=== PATIENT | female | born 1945 | race Caucasian/White ===

== ENCOUNTER 2018-06-28 10:14 | Emergency (ER) | payer OTHER ==
[~2018-06-28] VITALS: Ht 144.8 cm; Wt 49.9 kg
[~2018-06-28 10:14] MED LIST: ATACAND4 MG PO; LOTREL 5-10 MG1 CAP PO; NEURONTIN600 MG PO; PEPCID40 MG PO; PLAVIX75 MG PO; SYNTHROID175 MCG PO; TRICOR48 MG PO; ZYRTEC10 MG PO
[2018-06-28] MEDS ORDERED: NORFLEX100MG PO (13:11)
[2018-06-28] MEDS ORDERED: MEDROLPACK PO (13:11)
== END 2018-06-28 13:15 | disposition home or self-care (01) ==
LOC: ER 10:14
DX: M54.5 Low back pain (principal)

== ENCOUNTER 2018-08-21 13:36 | Emergency (ER) | payer OTHER ==
[~2018-08-21] VITALS: Ht 144.8 cm; Wt 49.9 kg
[~2018-08-21 13:36] MED LIST changes: +MEDROLPACK PO; +NORFLEX100MG PO
[2018-08-21] MEDS ORDERED: PERCOCET 5-3251 EACH (14:15)
== END 2018-08-21 20:13 | disposition home or self-care (01) ==
LOC: ER 13:36
DX: K58.8 Other irritable bowel syndrome (principal)

== ENCOUNTER 2018-11-02 14:12 | Outpatient (CLI) | payer OTHER ==
[~2018-11-02 14:12] MED LIST changes: +PERCOCET 5-3251 EACH
== END 2018-11-02 14:15 | disposition home or self-care (01) ==
LOC: RAD 14:12
DX: H43.12 Vitreous hemorrhage, left eye (principal); H43.812 Vitreous degeneration, left eye

== ENCOUNTER 2019-03-13 13:25 | Inpatient (IN) | payer OTHER ==
[~2019-03-13] VITALS: Ht 144.8 cm; Wt 44.5 kg
[2019-03-13] MEDS ORDERED: ASPIR 8181 MG (13:58)
[2019-03-13] MEDS ORDERED: METFORMIN HCL500 MG (13:59)
[2019-03-13] MEDS ORDERED: VASOTEC5 MG (13:59)
[2019-03-13] MEDS ORDERED: TOPROL XL25 MG (14:00)
[2019-03-13] MEDS ORDERED: ALDACTONE25 MG (14:00)
[2019-03-13] MEDS ORDERED: LIPITOR40 MG (14:00)
[2019-03-13] MEDS ORDERED: LASIX40 MG (14:01)
[2019-03-13] MEDS ORDERED: PERCOCET 10-321 EACH (14:01)
[2019-03-13] MEDS ORDERED: NEURONTIN800 MG (14:01)
--- NOTE | 2019-03-13 14:01 | NUR ---
PACIENTE CON REFERIDO MEDICO DEL
--- NOTE | 2019-03-13 16:41 | NUR ---
SE ORIENTA A PTE SOBRE PROCESO DE VENOPUNCION, JAVED DE MUESTRAS, ADMINISTRACION DE MED IV & PO. SE REALIZA EKG A PTE EL CUAL DR. RAMÍREZ Y SE INSERTA PINEDO BAJO MEDIDAS ASEPTICAS Y ESTERILES. SE MANTIENE PTE BAJO OBSERVACION.
== END 2019-03-18 10:58 | disposition home or self-care (01) | DRG 682 ==
LOC: ER 13:25 → MEDJ 19:26
PROVIDERS: ADMIT Internal Medicine Cardiovascular Disease
PROC: B246ZZZ Ultrasonography of Right and Left Heart (ICD-10-PCS; principal; 2019-03-13)
PROC: BT4JZZZ Ultrasonography of Kidneys and Bladder (ICD-10-PCS; 2019-03-13)
PROC: 3E0F7GC Introduction of Other Therapeutic Substance into Respiratory Tract, Via Natural or Artificial Opening (ICD-10-PCS; 2019-03-13)
PROC: 4A033R1 Measurement of Arterial Saturation, Peripheral, Percutaneous Approach (ICD-10-PCS; 2019-03-13)
DX: N17.8 Other acute kidney failure (principal); I50.43 Acute on chronic combined systolic (congestive) and diastolic (congestive) heart failure; E87.0 Hyperosmolality and hypernatremia; E87.3 Alkalosis; J44.1 Chronic obstructive pulmonary disease with (acute) exacerbation; I25.810 Atherosclerosis of coronary artery bypass graft(s) without angina pectoris; M50.03 Cervical disc disorder with myelopathy, cervicothoracic region; I13.0 Hypertensive heart and chronic kidney disease with heart failure and stage 1 through stage 4 chronic kidney disease, or unspecified chronic kidney disease; Q61.01 Congenital single renal cyst; E11.65 Type 2 diabetes mellitus with hyperglycemia; E86.0 Dehydration; Z79.4 Long term (current) use of insulin; E03.8 Other specified hypothyroidism; K58.8 Other irritable bowel syndrome; E87.5 Hyperkalemia; E78.49 Other hyperlipidemia; R39.2 Extrarenal uremia; I11.0 Hypertensive heart disease with heart failure; I08.1 Rheumatic disorders of both mitral and tricuspid valves; E11.22 Type 2 diabetes mellitus with diabetic chronic kidney disease; N18.2 Chronic kidney disease, stage 2 (mild)

== ENCOUNTER 2019-06-11 07:29 | Emergency (ER) | payer OTHER ==
[~2019-06-11] VITALS: Ht 147.3 cm; Wt 46.3 kg
[~2019-06-11 07:29] MED LIST changes: +ALDACTONE25 MG; +ASPIR 8181 MG; +LASIX40 MG; +LIPITOR40 MG; +METFORMIN HCL500 MG; +NEURONTIN800 MG; +PERCOCET 10-321 EACH; +TOPROL XL25 MG; +VASOTEC5 MG
[2019-06-11] MEDS ORDERED: TOPROL XL50 M1 (07:38)
== END 2019-06-11 12:24 | disposition home or self-care (01) ==
LOC: ER 07:29
DX: K29.60 Other gastritis without bleeding (principal); R06.02 Shortness of breath

== ENCOUNTER 2019-06-19 22:25 | Inpatient (IN) | payer OTHER ==
[~2019-06-19] VITALS: Ht 147.3 cm; Wt 44.5 kg
[~2019-06-19 22:25] MED LIST changes: +TOPROL XL50 M1
== END 2019-06-24 11:22 | disposition home or self-care (01) | DRG 292 ==
LOC: ER 22:25 → ICU-2 06-20 06:33 → SEC-K 06-22 06:44 → MEDJ 06-22 06:45
PROVIDERS: ADMIT Internal Medicine Cardiovascular Disease
PROC: B246ZZZ Ultrasonography of Right and Left Heart (ICD-10-PCS; principal; 2019-06-20)
PROC: 4A12X4Z Monitoring of Cardiac Electrical Activity, External Approach (ICD-10-PCS; 2019-06-22)
DX: I11.0 Hypertensive heart disease with heart failure (principal); J91.8 Pleural effusion in other conditions classified elsewhere; I50.23 Acute on chronic systolic (congestive) heart failure; I42.0 Dilated cardiomyopathy; I07.1 Rheumatic tricuspid insufficiency; Z95.810 Presence of automatic (implantable) cardiac defibrillator

== ENCOUNTER 2019-09-14 11:01 | Outpatient (CLI) | payer OTHER | END 2019-09-14 12:20 | disposition home or self-care (01) | LOC: NUCLEAR 11:01 | DX: I73.9 Peripheral vascular disease, unspecified (principal) ==

== ENCOUNTER 2020-01-28 02:13 | Inpatient (IN) | payer OTHER ==
[~2020-01-28] VITALS: Ht 144.8 cm; Wt 54.4 kg
[~2020-01-28 02:13] MED LIST changes: +ADULT LOW DOSE81 M1 PO; +CARDIZEM30 MG PO; +LIPITOR40 M1 PO; +NEURONTIN800 MG PO; +PLAVIX75 MG; +SYNTHROID75 MCG PO; +TOPROL XL25 M1 PO; +VASOTEC10 MG NGT; +ZENZEDI2.5 MG PO
== END 2020-02-02 10:41 | disposition home or self-care (01) | DRG 291 ==
LOC: ER 02:13 → ICU-2 10:49 → ICU 10:49 → MEDI 01-31 19:26
PROVIDERS: ADMIT Internal Medicine Cardiovascular Disease; ATTEND Internal Medicine Cardiovascular Disease
PROC: 4A033R1 Measurement of Arterial Saturation, Peripheral, Percutaneous Approach (ICD-10-PCS; 2020-01-28)
PROC: 3E0F7GC Introduction of Other Therapeutic Substance into Respiratory Tract, Via Natural or Artificial Opening (ICD-10-PCS; principal; 2020-01-31)
PROC: 4A12X4Z Monitoring of Cardiac Electrical Activity, External Approach (ICD-10-PCS; 2020-01-31)
DX: I13.0 Hypertensive heart and chronic kidney disease with heart failure and stage 1 through stage 4 chronic kidney disease, or unspecified chronic kidney disease (principal); I50.23 Acute on chronic systolic (congestive) heart failure; I42.0 Dilated cardiomyopathy; J44.9 Chronic obstructive pulmonary disease, unspecified; E03.9 Hypothyroidism, unspecified; E11.9 Type 2 diabetes mellitus without complications; N18.3 Chronic kidney disease, stage 3 (moderate); Z95.810 Presence of automatic (implantable) cardiac defibrillator; Z95.5 Presence of coronary angioplasty implant and graft

== ENCOUNTER 2020-04-24 13:10 | Emergency (ER) | payer OTHER ==
[~2020-04-24] VITALS: Ht 144.8 cm; Wt 49.9 kg
[2020-04-24] MEDS ORDERED: ENTRESTO 24 MG1 EACH (13:20)
[2020-04-24] MEDS ORDERED: LASIX40 MG (13:21)
[2020-04-24] MEDS ORDERED: ISOSORBIDE MONO30 MG (13:22)
[2020-04-24] MEDS ORDERED: OCUVITE EYE HE1 EACH (13:22)
== END 2020-04-24 15:42 | disposition home or self-care (01) ==
LOC: ER 13:10
DX: M54.5 Low back pain (principal)

== ENCOUNTER 2020-05-28 01:55 | Inpatient (IN) | payer OTHER ==
[~2020-05-28] VITALS: Ht 149.9 cm; Wt 49.9 kg
[~2020-05-28 01:55] MED LIST changes: +ENTRESTO 24 MG1 EACH; +ISOSORBIDE MONO30 MG; +OCUVITE EYE HE1 EACH
== END 2020-06-05 13:41 | disposition home or self-care (01) | DRG 194 ==
LOC: ER 01:55 → MEDI 06:55
PROVIDERS: ADMIT Internal Medicine Cardiovascular Disease; ATTEND Internal Medicine Cardiovascular Disease
PROC: BB24ZZZ Computerized Tomography (CT Scan) of Bilateral Lungs (ICD-10-PCS; principal; 2020-05-28)
PROC: B020ZZZ Computerized Tomography (CT Scan) of Brain (ICD-10-PCS; 2020-05-28)
PROC: 4A033R1 Measurement of Arterial Saturation, Peripheral, Percutaneous Approach (ICD-10-PCS; 2020-05-28)
PROC: 3E0F7GC Introduction of Other Therapeutic Substance into Respiratory Tract, Via Natural or Artificial Opening (ICD-10-PCS; 2020-05-28)
PROC: 4A12X4Z Monitoring of Cardiac Electrical Activity, External Approach (ICD-10-PCS; 2020-05-28)
DX: J18.9 Pneumonia, unspecified organism (principal); M50.00 Cervical disc disorder with myelopathy, unspecified cervical region; N17.8 Other acute kidney failure; N39.0 Urinary tract infection, site not specified; I11.0 Hypertensive heart disease with heart failure; I50.9 Heart failure, unspecified; E11.9 Type 2 diabetes mellitus without complications; F41.8 Other specified anxiety disorders; M54.16 Radiculopathy, lumbar region; G89.29 Other chronic pain; E03.9 Hypothyroidism, unspecified; T78.40XA Allergy, unspecified, initial encounter; E86.0 Dehydration; E87.5 Hyperkalemia; Z95.810 Presence of automatic (implantable) cardiac defibrillator; K29.70 Gastritis, unspecified, without bleeding; R06.02 Shortness of breath; B96.29 Other Escherichia coli [E. coli] as the cause of diseases classified elsewhere; Z20.828 Contact with and (suspected) exposure to other viral communicable diseases

== ENCOUNTER 2020-07-03 20:18 | Inpatient (IN) | payer OTHER ==
[~2020-07-03] VITALS: Ht 149.9 cm; Wt 54.4 kg
--- NOTE | 2020-07-03 21:15 | NUR ---
SE RECIBE PTE. FEMENINA EN AMBULANCIA ACOMPANADA DE HIJA PTE. REFIERRE PTE. CON DIFICULTAD RESPIRATORIA LE TAVON DOLOR DE PECHO AHORA NO. VOMITOS NAUSEAS Y DIARREAS. SE REALIZA EKG Y SE UBICA EN CAMA-18. SE CONECTA A MONITOR CARDIACO
--- NOTE | 2020-07-03 21:59 | NUR ---
IV LINE IS STARTED ON PATIENT'S LEFT WRIST WHERE BLOOD SAMPLES ARE ALSO TAKEN IN ORDER TO COMPLETE LABS. SALINE LOCK IS PLACED ON IV LINE. PATIENT IS BREATHING WITH DISTRESS AND SAYS SHE FEELS SHORT OF BREATH AND IS CUURENTLY AT 96% 02. PATIENT IS HELPED TO URINATE IN BED SMALL WHERE URINE SAMPLE IS TAKEN. PATIENT STAYS IN OBSERVATION FOR ANY CHANGES IN HER CONDITION.
--- NOTE | 2020-07-03 23:48 | NUR ---
SE RECIBE FEMINA ALERTA Y ORIENTADA POR JUANI ESFERAS, EN CAMA CON BARANDAS SEGURAS Y ELEVADAS. CONECTADA A MONITOR CARDIACO CON OXIMETRIA DE PULSO. CANALIZADA EN MANO DERECHA Y MANO IZQUIERDA CON AREA DE VENOPUNCIONES LIBRES DE EDEMA O ENROJECIMIENTO. RECIBIENDO TRIDIL 50MG/250ML @ 3 ML/HR. PRESENTA BUEN PATRON RESSPIRATORIO. 2354- SE ASISTE A PACIENTE A ORINAR EN MATTHEW.
--- NOTE | 2020-07-04 04:00 | NUR ---
PACIENTE SE DESPIERTA DESORIENTADA POR JUANI ESFERAS Y POCO COOPERADORA. SE RE-ORIENTA SOBRE TRATAMIENTO Y SE MANTIENE EN OBSERVACION POR CAMBIOSS. SE PROVEE ASISTENCIA PARA ORINAR EN MATTHEW.
--- NOTE | 2020-07-04 06:56 | NUR ---
PACIENTE SE TORNA AGRESIVA QUERIENDOSE TIRAR DE LA CAMA E INTENTANDO QUITARSE LAS VENOPUNCIONES Y CABLES DEL MONITOR. SE LLAMA A DR. KIMBLE ORDENA QUE SE RESTRINJA A PACIENTE Y SE ADMINISTRE 1MG DE ATIVAN IV.
--- NOTE | 2020-07-04 07:20 | NUR ---
SE RECIBE PTE ALERTA Y DESORIENTADA, LA CUAL SE ENCUENTRA CONECTADA A MONITOR CARDIACO Y OXIMETRIA DE PULSO CON S/V ESTABLE. LA MISMA SE ENCUENTRA CON AREA DE VENOPUNCIONES PATENTE Y LIBRES DE EDEMA LA MISMA SE ENCUENTRA BAJANDO TRIDIL 50MG/250ML DW5 AT 3 ML/HR. SE OBSERVA RESTRICCIONES EN AMBAS EXTREMIDADES LA MISMA SE ENCUENTRA JASMIN DE LACERACION Y ENROJECIMIENTO. PTE SE ENCUENTRA EN ESPERA DE CONSULTA CON DR. LEMA. SE BUSCA MEDICAMENTO ORDENADO ATIVAN 1MG PTE TOLERA TRATAMIENTO.
--- NOTE | 2020-07-04 07:49 | NUR ---
PTE SE REMUEVE CON HEADLEY BOCA VENOPUNCION EN BRAZO DERECHO SE CUBRE LA MISMA PTE SE MANTIENE BAJO OBSERVACION RECIBIENDO TRATAMIENTO MEDICO.
--- NOTE | 2020-07-04 08:56 | NUR ---
SE LLAMA A DR. LEMA YA QUE FAMILIAR DE PTE Y PTE REFIERE QUE PRESENTA ABUNDANDE DOLOR DE ESPALDA. POR EL CUAL DR. LEMA ORDENA PERCOCET 5/325 TAB STAT Y CONTINUAR LA MISMA PRN Q6HRS PARA EL DOLOR. AL REGRESAR A UNIDAD FAMILIAR DE PTE REMOVIO RESTRICCONES DE PTE Y SENTO PTE EN BUTACA. SE ORIENTA SOBRE NORMAS DE UNIDAD.
== END 2020-07-18 16:03 | DRG 291 ==
LOC: ER 20:18 → MEDI 07-04 09:42 → MEDJ 07-04 09:42
PROVIDERS: ADMIT Internal Medicine Cardiovascular Disease; ATTEND Internal Medicine Cardiovascular Disease
PROC: 4A12X4Z Monitoring of Cardiac Electrical Activity, External Approach (ICD-10-PCS; principal; 2020-07-04)
PROC: 3E0F7GC Introduction of Other Therapeutic Substance into Respiratory Tract, Via Natural or Artificial Opening (ICD-10-PCS; 2020-07-04)
PROC: 4A033R1 Measurement of Arterial Saturation, Peripheral, Percutaneous Approach (ICD-10-PCS; 2020-07-05)
PROC: B246ZZZ Ultrasonography of Right and Left Heart (ICD-10-PCS; 2020-07-07)
PROC: B54DZZZ Ultrasonography of Bilateral Lower Extremity Veins (ICD-10-PCS; 2020-07-07)
PROC: BW40ZZZ Ultrasonography of Abdomen (ICD-10-PCS; 2020-07-08)
DX: I13.0 Hypertensive heart and chronic kidney disease with heart failure and stage 1 through stage 4 chronic kidney disease, or unspecified chronic kidney disease (principal); I50.21 Acute systolic (congestive) heart failure; I50.23 Acute on chronic systolic (congestive) heart failure; J18.8 Other pneumonia, unspecified organism; M50.00 Cervical disc disorder with myelopathy, unspecified cervical region; J44.1 Chronic obstructive pulmonary disease with (acute) exacerbation; N17.8 Other acute kidney failure; N39.0 Urinary tract infection, site not specified; I42.0 Dilated cardiomyopathy; Z20.828 Contact with and (suspected) exposure to other viral communicable diseases; M51.17 Intervertebral disc disorders with radiculopathy, lumbosacral region; E11.9 Type 2 diabetes mellitus without complications; I27.29 Other secondary pulmonary hypertension; R39.2 Extrarenal uremia; Z95.810 Presence of automatic (implantable) cardiac defibrillator; B96.29 Other Escherichia coli [E. coli] as the cause of diseases classified elsewhere

== ENCOUNTER 2020-07-29 08:47 | Inpatient (IN) | payer OTHER ==
[~2020-07-29] VITALS: Ht 154.9 cm; Wt 54.4 kg
== END 2020-07-30 21:52 | disposition expired | DRG 177 ==
LOC: ER 08:47 → MEDJ 20:20
PROVIDERS: ADMIT Internal Medicine Cardiovascular Disease; ATTEND Internal Medicine Cardiovascular Disease
PROC: 4A033R1 Measurement of Arterial Saturation, Peripheral, Percutaneous Approach (ICD-10-PCS; principal; 2020-07-29)
PROC: 8E0ZXY6 Isolation (ICD-10-PCS; 2020-07-29)
PROC: 3E0F7SF Introduction of Other Gas into Respiratory Tract, Via Natural or Artificial Opening (ICD-10-PCS; 2020-07-29)
PROC: 4A12X4Z Monitoring of Cardiac Electrical Activity, External Approach (ICD-10-PCS; 2020-07-30)
DX: U07.1 COVID-19 (principal); J12.89 Other viral pneumonia; I42.0 Dilated cardiomyopathy; J44.1 Chronic obstructive pulmonary disease with (acute) exacerbation; R09.02 Hypoxemia; E03.9 Hypothyroidism, unspecified; I10 Essential (primary) hypertension; F41.8 Other specified anxiety disorders; I46.8 Cardiac arrest due to other underlying condition; Z95.810 Presence of automatic (implantable) cardiac defibrillator